=== PATIENT | female | born 1960 | race Caucasian/White ===

== ENCOUNTER 2018-02-05 16:39 | Inpatient (IN) | payer BC, OTHER ==
[~2018-02-05] VITALS: Ht 162.6 cm; Wt 68.0 kg
[~2018-02-05 16:39] MED LIST: ALPR0.5T8 PO; AMLO1TAB PO; LEVO112T2 PO
--- NOTE | 2018-02-05 17:31 | NUR ---
PRE ADMISSION 57 year old female at intake office, presenting tremulous, and increase anxiety, patient BP 163/99 hr: 89 t: 98.6 r: 16 o2 sat: 98%. Patient reports substance use history of: etoh. Patient reports began drinking at the age of 19, but for the past 3 months has been consuming 4 shots 180ml of vodka five times a week. Patient reports last drink was 02/03/2018. Patient reports first time in treatment. Patient brought home medications with her, per patient reports takes medications as prescribed, and last took medications this morning. reports past medical history of: depression diagnosed: 2014, and Edis disease Dx: 20 years ago. Patient denies any history of seizures. Patient denies any family history of substance abuse. Patient was educated regarding unit policies and procedure with good verbal understanding. Dr. maya aware of new admission.
[2018-02-05 18:15] VITALS: BP 163/99
[2018-02-05] MEDS ORDERED: BUPR-51 PO (18:42)
[2018-02-05] MEDS ORDERED: [UNRECOGNIZED DRUG - CODE] PO (18:42)
[2018-02-05] MEDS ORDERED: ESCI5TAB PO (18:42)
[2018-02-05] MEDS ORDERED: OMEP20TA20 PO (18:42)
[2018-02-05] MEDS ORDERED: LEVO137T24 PO (18:45)
--- NOTE | 2018-02-05 19:05 | NUR ---
ADMISSION Patient arrived to [facility] at 1852, patients body search completed by female COLLEGE BASKETBALL COACH, no contraband was found. Body assessment completed, patient skin is intact. Patient is 5 feet 4 inches and weighs 150lbs. Patient was oriented to unit and to room, education regarding call light use was provided. Patient reports primary care physician: Dr. Ruperto Kauffman from [facility] (formerly [facility]). Reports she currently resides in [place], and lives with her and children, whom which is her main support system. Patient reports substance use of: 1. Etoh- began drinking alcohol at the age of 19 on/off. Reports for the past 3 months has been consuming 4 shots ( 180ml) of vodka 5 times a week. Last drink was on 02/03/2018. Patient reports first time in treatment/detox. Patient brought home medications with her. Reports past medical history of: depression Dx: 2014, and Edis disease: 20 years ago. Patient denies any history of seizures. Patient presenting with: anxiety, tremulous, mild nausea, and restlessness, and head fullness admitting ciwa score of: 13. Patient reports her longest period of sobriety has been a few months patient reports she relapses and began drinking again because of stress, anxiety and feeling depressed. Patient denies any SI/HI. Patient reports she was to regain her sobriety back to get her life back, reports she no longer wants to drinking because it is affecting her health and personal life. Patient provided with calming reassurance. Patient wears corrective eye glasses. Patients respirations are clear and unlabored, lungs clear upon auscultation. Patients abdomen is soft and non distended, bowel sounds heard in all quadrants. Patients pupils are equal and reactive to light. Patients safety measures are in place. call light with in reach. Dr. Liu on unit to see patient. Will continue to monitor closely. Patient was endorsed to shift manager nurse, all pertinent information was discussed.
--- NOTE | 2018-02-05 19:15 | NUR ---
Start of Shift Note: Patient is a 57 y.o female admitted today 02/05/18 for medically supervised withdrawal from ETOH. Patient is alert & oriented x4. Patient is ambulatory with a steady gait. Pt appears flushed, anxious and irritable. Pt presented with nausea, has clammy/moist skin, fine tremors, reports moderately severe headache, sensitivity to light and itching. Pt placed on PRN Ativan for s/s of withdrawal. Last CIWA . No PRN's given during day shift. Patient stable at this time. Educated patient of current plan of care. Safety measures placed. Bed locked in lowest position. Both side rails up. Call light within pt's reach. Will continue to monitor patient.
[2018-02-05] MEDS ORDERED: DICYCLOMINE HCL 20 MG TABLET PO PRN (19:45)
[2018-02-05] MEDS ORDERED: MAGNESIUM HYDROXIDE 30 ML LIQUID UDC PO PRN (19:45)
[2018-02-05] MEDS ORDERED: ONDANSETRON 4 MG/2 ML VIAL IM PRN (19:45)
[2018-02-05] MEDS ORDERED: LORAZEPAM 1 MG TABLET PO ONE (19:45)
[2018-02-05] MEDS ORDERED: MAG HYDROX/AL HYDROX/SIMETH 30 ML LIQUID UDC PO PRN (19:45)
[2018-02-05] MEDS ORDERED: LORAZEPAM 2 MG/1 ML VIAL IM PRN (19:45)
[2018-02-05] MEDS ORDERED: MIRALAX 17 GM POWD.PACK PO PRN (19:45)
[2018-02-05] MEDS ORDERED: LORAZEPAM 1 MG TABLET PO PRN (19:45)
[2018-02-05] MEDS ORDERED: THIAMINE HCL 200 MG/2 ML VIAL IM ONE (19:45)
[2018-02-05] MEDS ORDERED: LOPERAMIDE HCL 2 MG CAPSULE PO PRN ×2 (19:45)
[2018-02-05] MEDS ORDERED: ACETAMINOPHEN 325 MG TABLET PO PRN (19:45)
[2018-02-05 19:58] LABS: *URINE HCG, QUAL NEGATIVE (NEGATIVE)
[2018-02-05 20:00] VITALS: BP 151/97
[2018-02-05 20:07] LABS: *AMPHETAMINE, URINE NEGATIVE (NEGATIVE); *BARBITURATE, URINE NEGATIVE (NEGATIVE); *CANNABINOID, URINE NEGATIVE (NEGATIVE); *COCCAINE, URINE NEGATIVE (NEGATIVE); *OPIATE, URINE NEGATIVE (NEGATIVE); *PHENCYCLIDINE SCREEN,URINE NEGATIVE (NEGATIVE)
[2018-02-05 20:08] LABS: ALANINE AMINOTRANSFERASE 248 U/L (14-59); ALKALINE PHOSPHATASE 91 U/L (50-136); AMYLASE 33 U/L (25-115); ASPARTATE AMINOTRANSFERASE 188 U/L (15-37); BILIRUBIN,TOTAL 0.9 mg/dL (0.2-1.0); CARBON DIOXIDE 29 mmol/L (21-32); CHLORIDE 101 mmol/L (98-107); CREATININE 1.1 mg/dL (0.6-1.3); GLUCOSE 104 mg/dL (74-106); MAGNESIUM 1.7 mg/dL (1.8-2.4); POTASSIUM 3.4 mmol/L (3.5-5.1); TOTAL PROTEIN, SERUM 8.3 g/dL (6.4-8.2); UREA NITROGEN, BLOOD 18 mg/dL (7-18)
[2018-02-05 20:13] LABS: BASOPHILS % (AUTO) 0.8 % (0.0-2.0); EOSINOPHILS # (AUTO) 0.1 K/uL (0.0-0.7); EOSINOPHILS % (AUTO) 1.3 % (0.0-7.0); HEMATOCRIT 39.9 % (31.2-41.9); HEMOGLOBIN 13.9 g/dL (10.9-14.3); LYMPHOCYTES # (AUTO) 1.2 K/uL (20.0-40.0); LYMPHOCYTES % (AUTO) 18.3 % (20.5-51.5); MEAN CORPUSCULAR HEMOGLOBIN 33.1 uug (24.7-32.8); MEAN CORPUSCULAR HGB CONC 35 g/dL (32.3-35.6); MEAN CORPUSCULAR VOLUME 94.8 fL (75.5-95.3); MONOCYTES # (AUTO) 0.8 K/uL (2.0-10.0); MONOCYTES % (AUTO) 12.2 % (0.0-11.0); NEUTROPHILS # (AUTO) 4.4 K/uL (1.8-8.9); NEUTROPHILS % (AUTO) 67.4 % (38.5-71.5); PLATELET COUNT (AUTO) 256 K/uL (179-408); RED BLOOD CELL COUNT(AUTO) 4.21 MIL/uL (3.63-4.92); WHITE BLOOD COUNT (AUTO) 6.6 K/uL (3.8-11.8)
[2018-02-05 20:19] LABS: ETHANOL < 3 MG/DL (0-0)
[2018-02-05] MEDS: ONDANSETRON ODT 4 MG TAB.RAPDIS SL PRN (20:20)
[2018-02-05] MEDS: IBUPROFEN 400 MG TABLET PO PRN (20:20)
--- NOTE | 2018-02-05 20:20 | NUR ---
PRN Motrin & Zofran Patient reported 7/10 headache and nausea with no episode of vomiting noted. PRN Motrin & Zofran administered as ordered. Will monitor for effectiveness of medication.
[2018-02-05 20:46] LABS: THYROID STIMULATING HORMONE 10.572 mIU/mL (0.358-3.740)
[2018-02-05] MEDS: AMLODIPINE PO SCH (21:18)
[2018-02-05] MEDS: VALSARTAN PO SCH (21:18)
[2018-02-05] MEDS: HCTZ PO SCH (21:18)
--- NOTE | 2018-02-05 21:18 | NUR ---
Pt noted with K+ levels of 3.4 and Mg level of 1.7. MD made aware with new orders noted. K-dur 40meQ and Mag-Ox 400mg administered as ordered and tolerated well. Will continue to monitor patient.
--- NOTE | 2018-02-05 21:20 | NUR ---
PRN Reassessment Patient verbalized improved in nausea and decreased in headache from 7/10 to 5/10 after 1 hour of medication administration. Patient observed ambulating in hallways at this time. Safety measures in place. Will continue to monitor patient.
[2018-02-05] MEDS: diphenhydrAMINE 50 MG CAPSULE PO PRN (21:28)
--- NOTE | 2018-02-05 21:28 | NUR ---
PRN Benadryl Patient complained of insomnia and requested medication to help him sleep. PRN Benadryl administered as ordered. Will continue to monitor patient.
[2018-02-05] MEDS ORDERED: MAGNESIUM OXIDE 400 MG TABLET PO ONE (21:30)
[2018-02-05] MEDS ORDERED: POTASSIUM CHLORIDE 20 MEQ TAB.PRT.SR PO ONE (21:30)
[2018-02-05 23:40] VITALS: BP 151/91
--- NOTE | 2018-02-05 23:44 | NUR ---
PRN Clonidine and Ativan Patient presented with sweating, fine tremors, anxiety, agitation & restlessness. CIWA 13 noted at this time. Pt also noted with increased BP of 151/91, OH 72. PRN Clonidine & Ativan 2mg administered as ordered. Safety measures in place. Will continue to monitor patient.
[2018-02-05] MEDS: CLONIDINE HCL 0.1 MG TABLET PO PRN (23:47)
--- NOTE | 2018-02-06 00:44 | NUR ---
PRN Reassessment Patient asleep in bed at this time and appears comofrtable. No s/s of discomfort noted. Breathing even & unlabored. Safety precautions in place. Will continue to monitor patient.
[2018-02-06 04:00] VITALS: BP 119/85
[2018-02-06] MEDS: LEVOTHYROXINE SODIUM 137 MCG TABLET PO SCH (06:49)
--- NOTE | 2018-02-06 07:12 | NUR ---
End of Shift Note: Patient is a 57 y.o female admitted yesterday 02/05/18 for medically supervised withdrawal from ETOH. Pt is on PRN Ativan for s/s of withdrawals. Initial CIWA 15. Pt presented with nausea, has clammy/moist skin, fine tremors, reports moderately severe headache, sensitivity to light and itching. Pt was given PRN Clonidine, Zofran, Benadryl, Motrin & Ativan 2mg during my shift and were effective. Last CIWA 13 @ 0000. Pt also noted with K=3.4 and Mg=1.7 and pt was given K-dur 40meQ and Mag-Ox 400mg as ordered & tolerated well. Pt stable at this time. Vitals noted WNL. Continue to closely monitor s/s of withdrawal. Encourage pt to increase fluid intake. Fluid intake: 1175 ml, Voided 2x with no bowel movement. Pt slept for a total of 6 hours. All needs attended & met. Safety measures in place. Will endorse pt to day shift nurse.
--- NOTE | 2018-02-06 07:34 | NUR ---
BEGINNING OF SHIFT Patient endorsement report received from shift boss nurse, all pertinent information discussed. Patient is a 57 year old female with admitting Dx: etoh withdrawal. Patient is Currently under close observation, patient currently with no ongoing taper, but has PRN medication for s/sx of withdrawal. slept for 6 hours. Fall and seizure precautions observed at all times. Patient awake, alert and oriented x4, will educated regarding plan of care for the day, and medication regimen. Patient received PRN:Ativan 2 mg PO, Clonidine, Zofran, Motrin, and Benadryl, medications well tolerated. fall and seizure precautions observed and in place. will continue to monitor closely. safety measures in place
[2018-02-06 08:49] VITALS: BP 122/84
[2018-02-06] MEDS: THIAMINE HCL 100 MG TABLET PO SCH (08:51)
[2018-02-06] MEDS: LORAZEPAM 1 MG TABLET PO PRN ×3 (08:51→16:14)
[2018-02-06] MEDS: MULTIVITAMINS,THERAPEUTIC TABLET PO SCH (08:51)
[2018-02-06] MEDS: FOLIC ACID 1 MG TABLET PO SCH (08:51)
--- NOTE | 2018-02-06 08:53 | NUR ---
PRN ATIVAN Patient presented with nausea, tremors, sweats, increase anxiety, flushed face, clammy skin, restlessness. with ciwa score of 10. administered Ativan 1 mg PO as ordered for s/sx of withdrawal. will monitor closely.
[2018-02-06] MEDS ORDERED: TUBERCULIN,PURIF.PROT.DERIV. 5 TU/0.1 ML TEST ID ONE (09:00)
[2018-02-06] MEDS ORDERED: PATIENT MAY USE OWN MED- MD OK PO SCH (09:00)
[2018-02-06] MEDS: VALSARTAN PO SCH (09:18)
[2018-02-06] MEDS: HCTZ PO SCH (09:18)
[2018-02-06] MEDS: AMLODIPINE PO SCH (09:18)
[2018-02-06] MEDS: IBUPROFEN 400 MG TABLET PO PRN (09:21)
--- NOTE | 2018-02-06 09:21 | NUR ---
PRN MOTRIN Patient c/o generalized body aches 03/22, provided with non pharmacological interventions with no relief, administered Motrin as ordered, will monitor effectiveness of medication.
--- NOTE | 2018-02-06 09:53 | NUR ---
ATIVAN REASSESSMENT patient reports medication effective, decrease in ciwa score from 10 to 8, reports no nausea, and less anxiety, will continue to monitor.
--- NOTE | 2018-02-06 10:21 | NUR ---
MOTRIN REASSESSMENT Patient reports medication effective, decrease in generalized body aches to 2/10, tolerable pain level as per patient will continue to monitor closely.
[2018-02-06 12:41] VITALS: BP 141/100
[2018-02-06] MEDS: ASPIRIN/ACETAMINOPHEN/CAFFEINE TABLET PO PRN ×2 (12:44→20:58)
[2018-02-06] MEDS: CLONIDINE HCL 0.1 MG TABLET PO PRN ×2 (12:45→20:58)
--- NOTE | 2018-02-06 12:45 | NUR ---
PRN ATIVAN/EXCEDRIN/CLONIDINE Patient presenting with increase anxiety, clammy skin, flushed face, tremors, sweats, restlessness, agitation, and headache, with ciwa score of: 12. Administered Ativan 1mg PO as ordered for s/sx of withdrawal as per MD orders. Patient also reported headache 6/10, administered Excedrin as ordered per MD. Patient with bp: 141/100 hr: 74, administered clonidine 0.1mg Po as ordered, will continue to monitor closely. safety measures in place. patient was encouraged to increase PO fluid intake as tolerated.
[2018-02-06 13:45] VITALS: BP 133/89
--- NOTE | 2018-02-06 13:45 | NUR ---
ATIVAN/EXCEDRIN/CLONIDINE REASSESSMENT Patient reports medication was effective, no further c/o headache, current pain level 0/10. patients bp decreased to: 133/89 hr: 71. Patient reports less anxiety and no further headache current ciwa score of: 10. will continue to monitor closely. safety measures in place.
[2018-02-06 16:05] VITALS: BP 137/90
--- NOTE | 2018-02-06 16:14 | NUR ---
PRN ATIVAN Patient presented with, tremors, sweats, increase anxiety, flushed face, clammy skin, restlessness. with ciwa score of 10. administered Ativan 1 mg PO as ordered for s/sx of withdrawal. will monitor closely.
--- NOTE | 2018-02-06 17:14 | NUR ---
ATIVAN REASSESSMENT patient reports medication effective, decrease in ciwa score from 10 to 8, reports less anxiety and agitation, will continue to monitor.
[2018-02-06] MEDS ORDERED: hydrALAZINE HCL 50 MG TABLET PO PRN (18:45)
--- NOTE | 2018-02-06 18:53 | NUR ---
END OF SHIFT Patient alert and oriented x4, monitored closely during shift. Patient has a worried, and anxious facial expression. Patient at times with increase anxiety, restlessness, and agitation, provided with calming reassurance as needed along with non pharmacological interventions as needed. Patient presented with: nausea, tremors, sweats, clammy skin, flushed face, anxiety and agitation initial ciwa score of: 10, last ciwa score of: 12. detox medication effective at reducing withdrawal symptoms. Patient received PRN: Ativan x3, Excedrin, Clonidine and Motrin all as ordered medications were effective. Patient encouraged participation in therapy sessions,patient noted attending and participating. patient denies any SI/HI, Patient was encouraged to verbalize feelings, encouraged to develop coping skills and utilization of non pharmacological interventions. Patients safety measures are in place. call light kept within reach, will continue to monitor. Endorsed to shift mgr nurse, all pertinent information discussed.
--- NOTE | 2018-02-06 19:15 | NUR ---
Start of Shift Note: Patient is a 57 y.o female admitted today 02/05/18 for medically supervised withdrawal from ETOH. Patient is under close observation for s/s of withdrawal. Patient is alert & oriented x4. Patient is ambulatory with a steady gait. Pt appears flushed, anxious and irritable. Pt presented with nausea, has clammy/moist skin, fine tremors, & reports moderately headache, Pt currently with no ongoing taper, PRN Ativan available for s/s of withdrawal. Last CIWA 8. PRN Ativan 1mg x3, Excedrin, Clonidine & Motrin were given to patient during day shift. Patient stable at this time. Educated patient of current plan of care and medication regimen for the night. Safety measures placed. Bed locked in lowest position. Both side rails up. Call light within pt's reach. Will continue to monitor patient.
[2018-02-06 20:00] VITALS: BP 136/93
[2018-02-06] MEDS: diphenhydrAMINE 50 MG CAPSULE PO PRN (20:58)
[2018-02-06] MEDS: ONDANSETRON ODT 4 MG TAB.RAPDIS SL PRN (20:58)
--- NOTE | 2018-02-06 20:58 | NUR ---
Pt is nauseous, reports 6/10 headache with noted increased in FO=334/93, MS 81. Pt noted in bed with restlessness & noted to be anxious. Pt also requested medication to help her sleep. PRN Zofran, Benadryl, Excedrin & Clonidine administered as ordered together with scheduled Ativan medication and tolerated well. Safety measures in place. Will continue to monitor patient.
[2018-02-06] MEDS ORDERED: LORAZEPAM 1 MG TABLET PO SCH (21:00)
--- NOTE | 2018-02-06 21:58 | NUR ---
Pt still awake at this time & verbalized improved nausea & decreased in headache from 6/10 to 3/10 after 1 hour of medication administration. B/P 121/76 VT 73 noted at this time. Pt appears comfortable with no facial grimacing noted. Respiration even & unlabored. Safety measures in place. Will continue to monitor patient.
[2018-02-07] MEDS ORDERED: AMLO5TAB2 PO (02:34)
[2018-02-07] MEDS ORDERED: FLUT16SP BNOSTRILS (02:34)
[2018-02-07] MEDS ORDERED: NICO4GUM9 BC (02:34)
[2018-02-07] MEDS ORDERED: RANI150T8 PO (02:34)
[2018-02-07] MEDS ORDERED: LOSA50TA21 PO (02:34)
[2018-02-07 04:00] VITALS: BP_SYST 124; BP_SYST 132; BP_DIAS 76; BP_DIAS 79
[2018-02-07] MEDS: LEVOTHYROXINE SODIUM 137 MCG TABLET PO SCH (06:48)
[2018-02-07] MEDS: ASPIRIN/ACETAMINOPHEN/CAFFEINE TABLET PO PRN ×3 (06:54→21:24)
[2018-02-07] MEDS: LORAZEPAM 1 MG TABLET PO PRN (06:54)
--- NOTE | 2018-02-07 06:54 | NUR ---
Pt presented with restlessness, anxiety, fine tremors, clammy/moist skin, & moderate headache. CIWA 10 at this time. PRN Ativan 1mg and Excedrin administered as ordered. Safety measures in place. Will continue to monitor patient.
--- NOTE | 2018-02-07 07:19 | NUR ---
End of Shift Note: Patient awake at this time. Patient remained alert & oriented x4. Patient has no ongoing taper, PRN Ativan available for s/s of withdrawals. Patient under close observation. Initial CIWA 13. Pt continues to present with anxious/irritable mood, fine tremors, nausea, moist/clammy skin & headache. Pt was given PRN Clonidine, Zofran, Benadryl, Ativan 1mg & Excedrinx2 during my shift and were effective. Last CIWA 10. Pt stable at this time. Vitals noted WNL. Continue to closely monitor s/s of withdrawal. Pt remained compliant with medications and treatment. Fluid intake: 855 ml, Voided 2x with no bowel movement. Encourage pt to increase fluid intake. Pt slept for a total of 6 hours. All needs attended & met. Safety measures in place. Will endorse pt to day shift nurse.
--- NOTE | 2018-02-07 07:38 | NUR ---
BEGINNING OF SHIFT Patient endorsement report received from warehouse worker 2nd shift nurse, all pertinent information discussed. Patient is a 57 year old female with admitting Dx: etoh withdrawal. Patient is Currently under close observation, patient currently with no ongoing taper, but has PRN medication for s/sx of withdrawal. slept for 6 hours. Patient with last ciwa score of: 10. Fall and seizure precautions observed at all times. Patient awake, alert and oriented x4, will educated regarding plan of care for the day, and medication regimen. Patient received PRN:Zofran, Benadryl, Excedrin, Clonidine, medications were effective, at: 0654 patient was administered Ativan and excedrin as ordered, will reassess effectiveness of medication. fall and seizure precautions observed and in place. will continue to monitor closely. safety measures in place
[2018-02-07 08:06] VITALS: BP 145/94
[2018-02-07] MEDS: HCTZ PO SCH (08:47)
[2018-02-07] MEDS: VALSARTAN PO SCH (08:47)
[2018-02-07] MEDS: AMLODIPINE PO SCH (08:47)
[2018-02-07] MEDS: FOLIC ACID 1 MG TABLET PO SCH (08:48)
[2018-02-07] MEDS: buPROPion XL 150 MG TAB.SR.24H PO SCH (08:48)
[2018-02-07] MEDS: ESCITALOPRAM OXALATE 10 MG TABLET PO SCH (08:48)
[2018-02-07] MEDS: CLONIDINE HCL 0.1 MG TABLET PO PRN ×2 (08:48→23:34)
[2018-02-07] MEDS: MULTIVITAMINS,THERAPEUTIC TABLET PO SCH (08:48)
[2018-02-07] MEDS: THIAMINE HCL 100 MG TABLET PO SCH (08:48)
[2018-02-07] MEDS: PRILOSEC OTC 20 MG PO PRN (09:01)
--- NOTE | 2018-02-07 09:01 | NUR ---
PRN PRILOSEC Patient reported dyspepsia. Administered home medication prilosec as ordered, will continue to monitor.
[2018-02-07 09:06] LABS: HEPATITIS B SURFACE AG Negative (Negative)
--- NOTE | 2018-02-07 10:01 | NUR ---
PRILOSEC REASSESSMENT Patient reports medication effective. no further c/o dyspepsia. will continue to monitor.
[2018-02-07 12:43] VITALS: BP 115/80
[2018-02-07] MEDS: HYDROXYZINE PAMOATE 25 MG CAPSULE PO PRN ×2 (15:21→21:24)
--- NOTE | 2018-02-07 15:21 | NUR ---
PRN EXCEDRIN/VISTARIL Patient reports headache 03/22, patient also reported increase anxiety, provided with non pharmacological interventions with no relief, administered Excedrin and Vistaril as ordered, will monitor effectiveness of medications.
[2018-02-07] MEDS ORDERED: DIPH50CA37 PO (16:02)
[2018-02-07] MEDS ORDERED: CLON0.1T14 PO (16:02)
[2018-02-07] MEDS ORDERED: ESCI10TA PO (16:02)
[2018-02-07] MEDS ORDERED: IBUP-1953 PO (16:02)
[2018-02-07] MEDS ORDERED: BUPR-96 PO (16:02)
[2018-02-07] MEDS ORDERED: HYDR-3895 PO (16:02)
[2018-02-07] MEDS ORDERED: Levothyroxine Sodium PO (16:02)
--- NOTE | 2018-02-07 16:21 | NUR ---
EXCEDRIN/VISTARIL REASSESSMENT Patient reports medications were effective, per patient no further headaches, and feel less anxious. will continue to monitor.
[2018-02-07 17:10] VITALS: BP 133/88
--- NOTE | 2018-02-07 19:06 | NUR ---
END OF SHIFT Patient alert and oriented x4, monitored closely during shift. Patient has a worried, and anxious facial expression. provided with calming reassurance as needed along with non pharmacological interventions as needed. Patient presented with: headache, anxiety, difficulty sitting still, and fine tremors. Initial ciwa score of: 10, last ciwa score of: 5. Detox medication effective at reducing withdrawal symptoms. Patient noted self motivated towards sobriety and is scheduled to be discharged tomorrow morning. Patient encouraged participation in therapy sessions,patient noted attending and participating. Patient received PRN: Excedrin, Vistaril and Prilosec during shift, medications well tolerated. patient denies any SI/HI, Patient was encouraged to verbalize feelings, encouraged to develop coping skills and utilization of non pharmacological interventions. Patients safety measures are in place. call light kept within reach, will continue to monitor. Endorsed to overnight caregiver nurse, all pertinent information discussed.
--- NOTE | 2018-02-07 19:15 | NUR ---
Start of Shift Note: Patient is a 57 y.o female admitted on 02/05/18 for medically supervised withdrawal from ETOH. Patient in bed watching TV. Patient is alert & oriented x4. Patient is ambulatory with a steady gait. Pt presented with anxiety/agitation, clammy/moist skin, fine tremors, & reports mild headache. Patient is scheduled to be discharge tomorrow. Last CIWA 5. PRN Vistaril, Prilosec, & Excedrin were given to patient during day shift. Patient stable at this time. Educated patient of current plan of care and medication regimen for the night. Safety measures placed. Bed locked in lowest position. Both side rails up. Call light within pt's reach. Will continue to monitor patient.
[2018-02-07 20:00] VITALS: BP 132/97
[2018-02-07] MEDS: diphenhydrAMINE 50 MG CAPSULE PO PRN (21:24)
--- NOTE | 2018-02-07 21:24 | NUR ---
Patient is anxious, restless, & reports mild headache. Pt also requested for medication to help her sleep. PRN Benadryl, Excedrin & Vistaril administered as ordered. Will monitor for effectiveness of medication.
--- NOTE | 2018-02-07 22:24 | NUR ---
PRN Reassessment Patient verbalized decreased in anxiety and relief from pain after 1 hour of medication administration. Pt still awake at this time and appears comfortable. Safety measures in place. Will continue to monitor patient.
--- NOTE | 2018-02-07 23:34 | NUR ---
PRN Clonidine Patient noted with increased LQ=834/97, GA=74. Will continue to monitor patient.
[2018-02-07 23:35] VITALS: BP 134/97
[2018-02-08] MEDS: LEVOTHYROXINE SODIUM 137 MCG TABLET PO SCH (06:48)
--- NOTE | 2018-02-08 07:11 | NUR ---
End of Shift Note: Patient asleep at this time. Patient remained alert & oriented x4. Pt is scheduled to be discharge today. Pt verbalized that she is anxious of discharge place and dont know what to expect. Pt was given PRN Benadryl, Excedrin, Vistaril & Clonidine during my shift and were effective. Last CIWA 8. Pt stable at this time. Vitals noted WNL. Continue to closely monitor s/s of withdrawal. Pt remained compliant with medications and treatment. Fluid intake: 750 ml, Voided 1x with no bowel movement. Encourage pt to increase fluid intake. Pt slept for a total of 6 hours. All needs attended & met. Safety measures in place. Will endorse pt to day shift nurse.
--- NOTE | 2018-02-08 07:30 | NUR ---
START OF SHIFT Received report from assistant shift supervisor nurse. Pt is lying in bed resting. She is a 57 yo female admitted to [facility] on 02/05 for ETOH withdrawal. She was ordered PRN medication for the management of withdrawal symptoms and is schedule for discharge today. She reports anxiety and headache. Minimal other s/s of withdrawal noted. Encouraged relaxation. Pt educated regarding discharge process and she verbalized understanding. Safety measures in place.
--- NOTE | 2018-02-08 08:29 | NUR ---
PRN Motrin and Prilosec reassessment PRN Motrin and Prilosec effective. Headache and acid indigestion are relieved.
[2018-02-08] MEDS: VALSARTAN PO SCH (08:31)
[2018-02-08] MEDS: AMLODIPINE PO SCH (08:31)
[2018-02-08] MEDS: MULTIVITAMINS,THERAPEUTIC TABLET PO SCH (08:31)
[2018-02-08] MEDS: HCTZ PO SCH (08:31)
[2018-02-08] MEDS: THIAMINE HCL 100 MG TABLET PO SCH (08:31)
[2018-02-08] MEDS: buPROPion XL 150 MG TAB.SR.24H PO SCH (08:32)
[2018-02-08] MEDS: IBUPROFEN 400 MG TABLET PO PRN (08:32)
[2018-02-08] MEDS: PRILOSEC OTC 20 MG PO PRN (08:32)
--- NOTE | 2018-02-08 08:33 | NUR ---
PRN Motrin and Prilosec Pt reports headache 3/10 and acid indigestion. PRN Motrin and Prilosec administered.
[2018-02-08] MEDS: FOLIC ACID 1 MG TABLET PO SCH (08:49)
[2018-02-08] MEDS: ESCITALOPRAM OXALATE 10 MG TABLET PO SCH (08:51)
[2018-02-08] MEDS: HYDROXYZINE PAMOATE 25 MG CAPSULE PO PRN (09:14)
--- NOTE | 2018-02-08 09:15 | NUR ---
PRN Vistaril administration Pt reports feeling anxious and restless. Encouraged relaxation. PRN Vistaril administered.
--- NOTE | 2018-02-08 09:35 | NUR ---
DISCHARGE NOTE Pt is in stable condition. Vitals are WNL. Pt is alert and oriented x4 and skin is intact. She denies SI/HI. All discharge paperwork completed, dated, and signed. Pt educated regarding discharge instructions, what to do after discharge, and s/s reportable to the MD. Pt verbalized understanding. Last COWS 4 at 0800. Pt was discharged from [facility] on 02/08/18 at 0930. She left the building with all of her belongings, home medications, and prescriptions. MD aware of pt's discharge.
== END 2018-02-08 09:30 | disposition other institution (70) | DRG 895 ==
LOC: SRC 17:23
PROVIDERS: ADMIT Internal Medicine; ATTEND Internal Medicine
PROC: HZ2ZZZZ Detoxification Services for Substance Abuse Treatment (ICD-10-PCS; principal; 2018-02-05)
PROC: HZ41ZZZ Group Counseling for Substance Abuse Treatment, Behavioral (ICD-10-PCS; 2018-02-07)
DX: F10.230 Alcohol dependence with withdrawal, uncomplicated (principal); K70.10 Alcoholic hepatitis without ascites; E83.42 Hypomagnesemia; I15.9 Secondary hypertension, unspecified; F33.1 Major depressive disorder, recurrent, moderate; Y90.0 Blood alcohol level of less than 20 mg/100 ml; E87.6 Hypokalemia; Z81.1 Family history of alcohol abuse and dependence; Z80.3 Family history of malignant neoplasm of breast; Z83.49 Family history of other endocrine, nutritional and metabolic diseases; Z79.899 Other long term (current) drug therapy; F41.9 Anxiety disorder, unspecified; E06.3 Autoimmune thyroiditis; F13.90 Sedative, hypnotic, or anxiolytic use, unspecified, uncomplicated
CPT/HCPCS: 36415; 70030-TC; 80307; 80346; 83735; 84443; 84703; 85025; 86580; 86592; 86705; 86803; 87340; 87806; A4663; A9150; G0480; J3411; Q0162; Q0163

== ENCOUNTER 2018-06-02 17:21 | Inpatient (IN) | payer BC, OTHER ==
[~2018-06-02] VITALS: Ht 162.6 cm; Wt 63.5 kg
[~2018-06-02 17:21] MED LIST changes: -ALPR0.5T8 PO; +AMLO-354 PO; -AMLO1TAB PO; +BUPR-96 PO; +CLON0.1T14 PO; +DIPH50CA37 PO; +ESCI10TA PO; +FLUT16SP BNOSTRILS; +HYDR-3895 PO; +IBUP-1953 PO; -LEVO112T2 PO; +LEVO137T24 PO; +Levothyroxine Sodium PO; +NICO4GUM9 BC; +OMEP20TA20 PO
[2018-06-02 19:43] LABS: *AMPHETAMINE, URINE NEGATIVE (NEGATIVE); *BARBITURATE, URINE NEGATIVE (NEGATIVE); *CANNABINOID, URINE NEGATIVE (NEGATIVE); *COCCAINE, URINE NEGATIVE (NEGATIVE); *OPIATE, URINE NEGATIVE (NEGATIVE); *PHENCYCLIDINE SCREEN,URINE NEGATIVE (NEGATIVE)
[2018-06-02 19:50] LABS: *URINE HCG, QUAL NEGATIVE (NEGATIVE)
[2018-06-02 20:00] VITALS: BP 186/103
[2018-06-02] MEDS ORDERED: DICYCLOMINE HCL 20 MG TABLET PO PRN (20:15)
[2018-06-02] MEDS ORDERED: MAG HYDROX/AL HYDROX/SIMETH 30 ML LIQUID UDC PO PRN (20:15)
[2018-06-02] MEDS ORDERED: MAGNESIUM HYDROXIDE 30 ML LIQUID UDC PO PRN (20:15)
[2018-06-02] MEDS ORDERED: LORAZEPAM 1 MG TABLET PO PRN (20:15)
[2018-06-02] MEDS ORDERED: LOPERAMIDE HCL 2 MG CAPSULE PO PRN ×2 (20:15)
[2018-06-02] MEDS ORDERED: LORAZEPAM 2 MG/1 ML VIAL IM PRN (20:15)
[2018-06-02] MEDS ORDERED: MIRALAX 17 GM POWD.PACK PO PRN (20:15)
[2018-06-02] MEDS ORDERED: THIAMINE HCL 200 MG/2 ML VIAL IM ONE (20:15)
[2018-06-02 20:29] LABS: BASOPHILS # (AUTO) 0.1 K/uL (0.0-8.0); BASOPHILS % (AUTO) 0.8 % (0.0-2.0); EOSINOPHILS # (AUTO) 0.1 K/uL (0.0-0.7); EOSINOPHILS % (AUTO) 1.4 % (0.0-7.0); HEMATOCRIT 41.7 % (31.2-41.9); HEMOGLOBIN 14.3 g/dL (10.9-14.3); LYMPHOCYTES # (AUTO) 3.9 K/uL (20.0-40.0); LYMPHOCYTES % (AUTO) 43.2 % (20.5-51.5); MEAN CORPUSCULAR HEMOGLOBIN 31.7 uug (24.7-32.8); MEAN CORPUSCULAR HGB CONC 34 g/dL (32.3-35.6); MEAN CORPUSCULAR VOLUME 92.6 fL (75.5-95.3); MONOCYTES # (AUTO) 0.9 K/uL (2.0-10.0); MONOCYTES % (AUTO) 9.8 % (0.0-11.0); NEUTROPHILS % (AUTO) 44.8 % (38.5-71.5); PLATELET COUNT (AUTO) 340 K/uL (179-408); RED BLOOD CELL COUNT(AUTO) 4.51 MIL/uL (3.63-4.92)
[2018-06-02 20:44] LABS: BILIRUBIN,TOTAL 0.4 mg/dL (0.2-1.0); CREATININE 0.8 mg/dL (0.6-1.3); MAGNESIUM 1.8 mg/dL (1.8-2.4); POTASSIUM 3.8 mmol/L (3.5-5.1); TOTAL PROTEIN, SERUM 8.3 g/dL (6.4-8.2)
[2018-06-02 20:55] LABS: THYROID STIMULATING HORMONE 0.676 mIU/mL (0.358-3.740)
[2018-06-02] MEDS: CLONIDINE HCL 0.1 MG TABLET PO PRN (21:49)
[2018-06-02] MEDS: diphenhydrAMINE 50 MG CAPSULE PO PRN (21:59)
[2018-06-02] MEDS: ONDANSETRON ODT 4 MG TAB.RAPDIS SL PRN (22:33)
[2018-06-03] VITALS (7 sets, daily range): BP systolic 121–150; BP diastolic 76–100
[2018-06-03] MEDS: ACETAMINOPHEN 325 MG TABLET PO PRN ×2 (03:49→20:37)
[2018-06-03] MEDS: ONDANSETRON 4 MG/2 ML VIAL IM PRN ×2 (03:49→10:24)
[2018-06-03] MEDS: LORAZEPAM 1 MG TABLET PO PRN ×2 (03:49→10:24)
[2018-06-03] MEDS ORDERED: LEVOTHYROXINE SODIUM 137 MCG TABLET PO SCH (07:00)
[2018-06-03] MEDS: FOLIC ACID 1 MG TABLET PO SCH (08:10)
[2018-06-03] MEDS: IBUPROFEN 400 MG TABLET PO PRN (08:10)
[2018-06-03] MEDS: CLONIDINE HCL 0.1 MG TABLET PO PRN ×2 (08:10→20:37)
[2018-06-03] MEDS: LORAZEPAM 1 MG TABLET PO SCH ×4 (08:10→20:37)
[2018-06-03] MEDS: THIAMINE HCL 100 MG TABLET PO SCH (08:10)
[2018-06-03] MEDS: MULTIVITAMINS,THERAPEUTIC TABLET PO SCH (08:10)
[2018-06-03] MEDS ORDERED: PANTOPRAZOLE SODIUM 40 MG TABLET.DR PO PRN (08:15)
[2018-06-03] MEDS: LEVOTHYROXINE SODIUM 137 MCG TABLET PO SCH (08:33)
[2018-06-03] MEDS ORDERED: LORAZEPAM 1 MG TABLET PO SCH (09:00)
[2018-06-03] MEDS ORDERED: TUBERCULIN,PURIF.PROT.DERIV. 5 TU/0.1 ML TEST ID ONE (09:00)
[2018-06-03] MEDS ORDERED: BUPR300T54 PO (10:15)
[2018-06-03] MEDS ORDERED: HCTZ PO SCH (11:00)
[2018-06-03] MEDS ORDERED: AMLODIPINE PO SCH (11:00)
[2018-06-03] MEDS ORDERED: VALSARTAN PO SCH (11:00)
[2018-06-03] MEDS: ONDANSETRON ODT 4 MG TAB.RAPDIS SL PRN ×2 (16:23→22:27)
[2018-06-03] MEDS: diphenhydrAMINE 50 MG CAPSULE PO PRN (22:27)
[2018-06-04] VITALS: BP 125/86
[2018-06-04] MEDS: IBUPROFEN 400 MG TABLET PO PRN ×3 (00:01→20:22)
[2018-06-04] MEDS: ONDANSETRON 4 MG/2 ML VIAL IM PRN (00:01)
[2018-06-04] MEDS ORDERED: TRAZODONE 50 MG TABLET PO ONE (00:20)
[2018-06-04 04:00] VITALS: BP 132/81
[2018-06-04] MEDS: LEVOTHYROXINE SODIUM 137 MCG TABLET PO SCH (06:58)
[2018-06-04] MEDS: ACETAMINOPHEN 325 MG TABLET PO PRN (07:04)
[2018-06-04 07:27] LABS: BILIRUBIN,TOTAL 0.8 mg/dL (0.2-1.0); CREATININE 0.8 mg/dL (0.6-1.3); MAGNESIUM 1.6 mg/dL (1.8-2.4); POTASSIUM 3.4 mmol/L (3.5-5.1); TOTAL PROTEIN, SERUM 6.7 g/dL (6.4-8.2)
[2018-06-04 08:00] VITALS: BP 124/89
[2018-06-04 08:05] LABS: HEPATITIS B SURFACE AG Negative (Negative)
[2018-06-04] MEDS: buPROPion XL 150 MG TAB.SR.24H PO SCH (08:52)
[2018-06-04] MEDS: AMLODIPINE 5 MG TABLET PO SCH (08:52)
[2018-06-04] MEDS: CLONIDINE HCL 0.1 MG TABLET PO PRN (08:52)
[2018-06-04] MEDS: HYDROCHLOROTHIAZIDE 12.5 MG CAPSULE PO SCH (08:52)
[2018-06-04] MEDS: ONDANSETRON ODT 4 MG TAB.RAPDIS SL PRN (08:52)
[2018-06-04] MEDS: LOSARTAN POTASSIUM 50 MG TABLET PO SCH (08:52)
[2018-06-04] MEDS: MULTIVITAMINS,THERAPEUTIC TABLET PO SCH (08:52)
[2018-06-04] MEDS: ESCITALOPRAM OXALATE 10 MG TABLET PO SCH (08:53)
[2018-06-04] MEDS: FOLIC ACID 1 MG TABLET PO SCH (08:53)
[2018-06-04] MEDS: LORAZEPAM 1 MG TABLET PO SCH ×3 (08:53→20:22)
[2018-06-04] MEDS: THIAMINE HCL 100 MG TABLET PO SCH (08:53)
[2018-06-04] MEDS ORDERED: LORAZEPAM 1 MG TABLET PO SCH (09:00)
[2018-06-04 12:00] VITALS: BP 132/94
[2018-06-04] MEDS: QUETIAPINE FUMARATE 25 MG TABLET PO PRN (12:58)
[2018-06-04] MEDS ORDERED: POTASSIUM CHLORIDE 20 MEQ TAB.PRT.SR PO ONE (14:30)
[2018-06-04] MEDS ORDERED: MAGNESIUM OXIDE 400 MG TABLET PO ONE (14:30)
[2018-06-04 16:00] VITALS: BP 119/80
[2018-06-04 20:00] VITALS: BP 111/80
[2018-06-04] MEDS: TRAZODONE 50 MG TABLET PO PRN (22:16)
[2018-06-05] VITALS: BP 110/77
[2018-06-05 04:00] VITALS: BP 118/79
[2018-06-05] MEDS: LEVOTHYROXINE SODIUM 137 MCG TABLET PO SCH (07:11)
[2018-06-05 07:21] LABS: BILIRUBIN,TOTAL 0.5 mg/dL (0.2-1.0); CREATININE 0.8 mg/dL (0.6-1.3); MAGNESIUM 1.8 mg/dL (1.8-2.4); POTASSIUM 3.7 mmol/L (3.5-5.1); TOTAL PROTEIN, SERUM 6.7 g/dL (6.4-8.2)
[2018-06-05 08:00] VITALS: BP 113/67
[2018-06-05] MEDS: ESCITALOPRAM OXALATE 10 MG TABLET PO SCH (08:19)
[2018-06-05] MEDS: LORAZEPAM 1 MG TABLET PO SCH ×2 (08:19→21:15)
[2018-06-05] MEDS: THIAMINE HCL 100 MG TABLET PO SCH (08:19)
[2018-06-05] MEDS: MULTIVITAMINS,THERAPEUTIC TABLET PO SCH (08:19)
[2018-06-05] MEDS: buPROPion XL 150 MG TAB.SR.24H PO SCH (08:19)
[2018-06-05] MEDS: LOSARTAN POTASSIUM 50 MG TABLET PO SCH (08:19)
[2018-06-05] MEDS: HYDROCHLOROTHIAZIDE 12.5 MG CAPSULE PO SCH (08:19)
[2018-06-05] MEDS: IBUPROFEN 400 MG TABLET PO PRN ×2 (08:19→20:19)
[2018-06-05] MEDS: FOLIC ACID 1 MG TABLET PO SCH (08:19)
[2018-06-05] MEDS: AMLODIPINE 5 MG TABLET PO SCH (08:20)
[2018-06-05] MEDS: QUETIAPINE FUMARATE 25 MG TABLET PO PRN ×2 (10:48→21:15)
[2018-06-05 12:00] VITALS: BP 133/93
[2018-06-05] MEDS: HYDROXYZINE PAMOATE 25 MG CAPSULE PO PRN (13:49)
[2018-06-05 16:00] VITALS: BP 130/79
[2018-06-05 20:00] VITALS: BP 138/88
[2018-06-05] MEDS: ONDANSETRON 4 MG/2 ML VIAL IM PRN (20:12)
[2018-06-05] MEDS: ACETAMINOPHEN 325 MG TABLET PO PRN (20:19)
[2018-06-05] MEDS: TRAZODONE 50 MG TABLET PO PRN (21:15)
[2018-06-06] MEDS: LEVOTHYROXINE SODIUM 137 MCG TABLET PO SCH (07:21)
[2018-06-06 08:04] VITALS: BP 118/86
[2018-06-06] MEDS: HYDROCHLOROTHIAZIDE 12.5 MG CAPSULE PO SCH (08:13)
[2018-06-06] MEDS: buPROPion XL 150 MG TAB.SR.24H PO SCH (08:13)
[2018-06-06] MEDS: HYDROXYZINE PAMOATE 25 MG CAPSULE PO PRN (08:14)
[2018-06-06] MEDS: ESCITALOPRAM OXALATE 10 MG TABLET PO SCH (08:14)
[2018-06-06] MEDS: FOLIC ACID 1 MG TABLET PO SCH (08:14)
[2018-06-06] MEDS: THIAMINE HCL 100 MG TABLET PO SCH (08:14)
[2018-06-06] MEDS: ONDANSETRON ODT 4 MG TAB.RAPDIS SL PRN (08:14)
[2018-06-06] MEDS: MULTIVITAMINS,THERAPEUTIC TABLET PO SCH (08:14)
[2018-06-06] MEDS: AMLODIPINE 5 MG TABLET PO SCH (08:14)
[2018-06-06] MEDS: LOSARTAN POTASSIUM 50 MG TABLET PO SCH (08:39)
[2018-06-06] MEDS: ACETAMINOPHEN 325 MG TABLET PO PRN (11:19)
[2018-06-06] MEDS: IBUPROFEN 400 MG TABLET PO PRN (11:19)
[2018-06-06 12:00] VITALS: BP 118/86
[2018-06-06] MEDS ORDERED: KETOROLAC TROMETHAMINE 30 MG INJ IM PRN (13:15)
[2018-06-06] MEDS ORDERED: LORAZEPAM 1 MG TABLET PO ONE ×2 (13:15→21:00)
[2018-06-06] MEDS: LORATADINE 10 MG TABLET PO PRN (13:56)
[2018-06-06 16:00] VITALS: BP 144/98
[2018-06-06] MEDS: PHENYLEPHRINE 0.5% NS PRN ×2 (16:49→21:38)
[2018-06-06] MEDS: CLONIDINE HCL 0.1 MG TABLET PO PRN (16:49)
[2018-06-06 20:00] VITALS: BP 140/90
[2018-06-06] MEDS: QUETIAPINE FUMARATE 25 MG TABLET PO PRN (20:40)
[2018-06-06] MEDS: TRAZODONE 50 MG TABLET PO PRN (21:38)
[2018-06-07] VITALS: BP 120/78
[2018-06-07] MEDS: LEVOTHYROXINE SODIUM 137 MCG TABLET PO SCH (06:45)
[2018-06-07 08:00] VITALS: BP 125/69
[2018-06-07] MEDS ORDERED: LORAZEPAM 1 MG TABLET PO ONE (09:00)
[2018-06-07] MEDS: IBUPROFEN 400 MG TABLET PO PRN ×2 (09:34→20:09)
[2018-06-07] MEDS: ESCITALOPRAM OXALATE 10 MG TABLET PO SCH (09:34)
[2018-06-07] MEDS: THIAMINE HCL 100 MG TABLET PO SCH (09:34)
[2018-06-07] MEDS: HYDROCHLOROTHIAZIDE 12.5 MG CAPSULE PO SCH (09:34)
[2018-06-07] MEDS: MULTIVITAMINS,THERAPEUTIC TABLET PO SCH (09:34)
[2018-06-07] MEDS: AMLODIPINE 5 MG TABLET PO SCH (09:34)
[2018-06-07] MEDS: FOLIC ACID 1 MG TABLET PO SCH (09:34)
[2018-06-07] MEDS: buPROPion XL 150 MG TAB.SR.24H PO SCH (09:35)
[2018-06-07] MEDS: LOSARTAN POTASSIUM 50 MG TABLET PO SCH (09:35)
[2018-06-07] MEDS: PHENYLEPHRINE 0.5% NS PRN (09:49)
[2018-06-07 12:00] VITALS: BP 149/99
[2018-06-07] MEDS: CLONIDINE HCL 0.1 MG TABLET PO PRN (12:22)
[2018-06-07 13:15] VITALS: BP 140/89
[2018-06-07] MEDS ORDERED: IBUP-1953 PO (13:28)
[2018-06-07] MEDS ORDERED: CLON0.1T14 PO (13:28)
[2018-06-07] MEDS ORDERED: AMLO5TAB2 PO (13:28)
[2018-06-07] MEDS ORDERED: HYDR-3895 PO (13:28)
[2018-06-07] MEDS ORDERED: LORA-114 PO (13:28)
[2018-06-07] MEDS ORDERED: LOSA50TA3 PO (13:28)
[2018-06-07] MEDS ORDERED: MULT-24 PO (13:28)
[2018-06-07] MEDS ORDERED: PHEN15SP3 NS (13:28)
[2018-06-07] MEDS ORDERED: DICY20TA28 PO (13:28)
[2018-06-07] MEDS ORDERED: QUET25TA PO (13:28)
[2018-06-07] MEDS ORDERED: ONDA4TAB11 SL (13:28)
[2018-06-07] MEDS ORDERED: TRAZ-213 PO (13:28)
[2018-06-07] MEDS ORDERED: HYDR12.517 PO (13:28)
[2018-06-07] MEDS: ACETAMINOPHEN 325 MG TABLET PO PRN (15:17)
[2018-06-07 16:00] VITALS: BP 140/95
[2018-06-07 20:00] VITALS: BP 135/93
[2018-06-07] MEDS: HYDROXYZINE PAMOATE 25 MG CAPSULE PO PRN (20:09)
[2018-06-07] MEDS: TRAZODONE 50 MG TABLET PO PRN (21:30)
[2018-06-07] MEDS: QUETIAPINE FUMARATE 25 MG TABLET PO PRN (21:30)
[2018-06-08] MEDS: LEVOTHYROXINE SODIUM 137 MCG TABLET PO SCH (06:44)
[2018-06-08] MEDS: IBUPROFEN 400 MG TABLET PO PRN (06:59)
[2018-06-08] MEDS: ACETAMINOPHEN 325 MG TABLET PO PRN (06:59)
[2018-06-08 08:00] VITALS: BP 135/85
[2018-06-08] MEDS: AMLODIPINE 5 MG TABLET PO SCH (08:22)
[2018-06-08] MEDS: buPROPion XL 150 MG TAB.SR.24H PO SCH (08:22)
[2018-06-08] MEDS: MULTIVITAMINS,THERAPEUTIC TABLET PO SCH (08:22)
[2018-06-08] MEDS: HYDROCHLOROTHIAZIDE 12.5 MG CAPSULE PO SCH (08:23)
[2018-06-08] MEDS: THIAMINE HCL 100 MG TABLET PO SCH (08:23)
[2018-06-08] MEDS: FOLIC ACID 1 MG TABLET PO SCH (08:23)
[2018-06-08] MEDS: ESCITALOPRAM OXALATE 10 MG TABLET PO SCH (08:23)
[2018-06-08] MEDS: LORATADINE 10 MG TABLET PO PRN (08:37)
[2018-06-08 08:38] VITALS: BP 135/85
[2018-06-08] MEDS: LOSARTAN POTASSIUM 50 MG TABLET PO SCH (08:38)
[2018-06-08] MEDS: PHENYLEPHRINE 0.5% NS PRN (08:39)
[2018-06-08] MEDS: HYDROXYZINE PAMOATE 25 MG CAPSULE PO PRN (09:17)
== END 2018-06-08 09:30 | disposition other institution (70) | DRG 895 ==
LOC: SRC 18:20
PROVIDERS: ADMIT Family Medicine Addiction Medicine; ATTEND Family Medicine Addiction Medicine
DX: F10.230 Alcohol dependence with withdrawal, uncomplicated (principal); F33.2 Major depressive disorder, recurrent severe without psychotic features; F10.220 Alcohol dependence with intoxication, uncomplicated; Y90.8 Blood alcohol level of 240 mg/100 ml or more; E83.42 Hypomagnesemia; E87.6 Hypokalemia; Z79.899 Other long term (current) drug therapy; F41.9 Anxiety disorder, unspecified; Z81.1 Family history of alcohol abuse and dependence; Z80.3 Family history of malignant neoplasm of breast; Z83.49 Family history of other endocrine, nutritional and metabolic diseases; I10 Essential (primary) hypertension; Z86.718 Personal history of other venous thrombosis and embolism; Z88.2 Allergy status to sulfonamides; E78.00 Pure hypercholesterolemia, unspecified; E06.3 Autoimmune thyroiditis
CPT/HCPCS: 36415; 70030-TC; 80307; 83690; 83735; 84443; 84703; 85025; 86580; 86592; 86705; 86803; 87340; 87806; A4663; G0480; J1885; J2405; J3411; Q0162; Q0163